=== PATIENT | female | born 1940 | race Caucasian/White ===

== ENCOUNTER → 2017-05-26 | Outpatient (CLI) | payer OTHER ==
[~2017-05-26] MED LIST: ALDACTONE25 MG PO; AMOXICILLIN 50500 MG PO; B12INJ IM; CALCIUM 600 +1 EAC1 PO; CLEOCIN HCL150 MG PO; EVISTA PO; FISH OIL 1,001000 M2 PO; FOLIC ACID1 MG PO; HYDROCHLOROTHIA25 M2 PO; LABETALOL HCL PO; LABETALOL HCL100 MG PO; LISINOPRIL10 MG PO; MELOXICAM7.5 MG PO; MOBIC7.5 MG PO; MULTIPLE VITAM1 EACH PO; NASONEX17 GM NASAL; NORCO 5-325 TA1 EACH PO; TRAZODONE HCL50 MG PO; TYLENOL EXTRA500 MG PO; VENTOLIN HFA 1818 GM INH; WELCHOL 625 MG625 MG PO; ZOFRAN ODT4 MG DISSOLVE
== END ==
LOC: M.MRI 11:12
DX: I67.82 Cerebral ischemia (principal); R25.1 Tremor, unspecified; G31.89 Other specified degenerative diseases of nervous system

== ENCOUNTER → 2017-06-06 | Outpatient (CLI) | payer OTHER | LOC: M.CT 13:21 | DX: J42 Unspecified chronic bronchitis (principal); R91.1 Solitary pulmonary nodule; I25.10 Atherosclerotic heart disease of native coronary artery without angina pectoris; I70.0 Atherosclerosis of aorta; M47.894 Other spondylosis, thoracic region; M51.36 Other intervertebral disc degeneration, lumbar region; I77.811 Abdominal aortic ectasia; K76.89 Other specified diseases of liver ==

== ENCOUNTER → 2017-07-18 | Outpatient (CLI) | payer OTHER ==
[2017-07-20 11:09] LABS: ANTI-DNA SCREEN <1 IU/mL (0-9); ANTI-RNP 0.4 AI (0.0-0.9)
== END ==
LOC: M.LAB 13:39
DX: G25.5 Other chorea (principal)

== ENCOUNTER 2017-08-30 10:35 | Inpatient (IN) | payer OTHER ==
[~2017-08-30] VITALS: Ht 152.4 cm; Wt 49.9 kg
[2017-08-30] VITALS (7 sets, daily range): BP systolic 144–189; BP diastolic 66–99
--- NOTE | ~2017-08-30 | S ---
[address] [address] SURGICAL PATH RPT PROCEDURE Name: MARLA MARTINEZ Room: [address] IN ..#: [id number] Admission: 08/30/17 Date of : 40 Discharge: Report #: [id number] Path Case #: [id number] PATHOLOGY REPORT DRAFT COLLECTION DATE: 08/30/2017 RECEIVED DATE: 08/30/2017 SPECIMEN(S) RECEIVED: A.Plaque left carotid
[~2017-08-30 10:35] MED LIST changes: -CLEOCIN HCL150 MG PO; -NORCO 5-325 TA1 EACH PO
[2017-08-30 11:26] LABS: ABSOLUTE BASOPHILS 0.1 thou/uL (0.0-0.2); ABSOLUTE EOSINOPHILS 0.1 thou/uL (0.0-0.7); ABSOLUTE MONOCYTES 0.9 thou/uL (0.0-1.2); ABSOLUTE NEUTROPHILS 8.8 thou/uL (1.6-8.1); BASOPHILS 0.7 %; HEMATOCRIT 36.9 % (37.0-47.0); HEMOGLOBIN 12.3 gm/dL (12.0-15.0); LYMPHOCYTES 16.5 %; MCH 31.1 pg (26.0-34.0); MCHC 33.3 g/dL (28.0-37.0); MCV 93.3 fL (80.0-100.0); MONOCYTES 7.7 %; MPV 8.5 fl. (7.2-11.1); NUCLEATED RBCS 0 /100WBC; PLATELET COUNT* 359 thou/uL (150-400); POLYS 74.1 %; RBC 3.96 mil/uL (4.20-5.00); RDW-CV 13.9 % (10.5-14.5); WBC 11.8 thou/uL (4.0-11.0)
[2017-08-30 11:33] LABS: CALCIUM 9.9 mg/dL (8.5-10.1); CREATININE 1.1 mg/dL (0.6-1.3)
[2017-08-30 11:35] LABS: POTASSIUM 5.3 mmol/L (3.5-5.1)
--- NOTE | 2017-08-30 15:28 | OP ---
[facility] [address] [place] [address] OPERATIVE REPORT Name: MRALA MARTINEZ Room: [address] IN .R.#: [id number] Admission: 08/30/17 Attend Phys: Harriett Hartman Discharge: Date of : 40 Report #: [id number] THIS REPORT FOR: //name// CC: Will Cantu DATE OF SERVICE: 08/30/2017 PREOPERATIVE DIAGNOSIS: Asymptomatic left carotid stenosis. POSTOPERATIVE DIAGNOSIS: Asymptomatic left carotid stenosis. SURGEON: Will Ariza DO. CAKE WRINGER: None. PROCEDURE: 1. Left carotid endarterectomy, bovine pericardial patch angioplasty. 2. Intraoperative arterial duplex. ANESTHESIA: General endotracheal anesthesia. ESTIMATED BLOOD LOSS: 100 mL. SPECIMEN: None. COMPLICATIONS: None. CONDITION: Stable. DISPOSITION: ICU. INDICATIONS FOR THE PROCEDURE AND CONSENT: The patient is a 77-year-old female who presented with severe left internal carotid artery asymptomatic stenosis. Recommendation for left carotid endarterectomy was made. Risks and benefits were discussed with infection, bleeding, nerve injury, stroke, heart attack, . The patient wished to proceed, was consented and scheduled. PROCEDURE IN DETAIL: After timeout was performed, the patient was placed in supine position with sterile prep and drape of the anterior neck and chest wall. A semi-transverse incision was made anterior to sternocleidomastoid on the left side. Dissection carried down sharply with Metzenbaum scissors as well as Bovie electrocautery. The internal jugular vein was encountered. Facial vein and the large branch were ligated with 2-0 silk suture and divided exposing the carotid bulb. The common carotid artery was then encircled [place] [id number] OPERATIVE REPORT Name: MARLA MARTINEZ Room: [address] IN [facility].#: [id number] Admission: 08/30/17 Attend Phys: Harriett Hartman Discharge: Date of : 40 Report #: [id number] utilizing an umbilical tape. The internal and external carotid arteries were identified and dissected out sharply. There was a crossing suspected marginal mandibular nerve, which was identified and able to be preserved; however, it was stretched significantly with retraction. The hypoglossal nerve was identified and preserved. The internal carotid artery was then controlled posteriorly with small vessel loop. The external carotid artery was controlled with a Silastic loop as well. The thyroidal artery was controlled with a 2-0 silk suture. The patient was then systemically heparinized with 6000 units of heparin, allowed to circulate for 3 minutes. The internal, external and common carotid arteries were then sequentially clamped and a longitudinal arteriotomy made with 11 blade scalpel and Morales scissors. A #12 shunt was advanced into the internal carotid artery without difficulty, was noted to backbleed well and then advanced in the common carotid artery and controlled with a Rumel tourniquet. The plaque was then using a plaque elevator and tapered nicely in its distal end point. The external carotid artery was everted and endarterectomy performed in this portion as well. The endarterectomized portion was then meticulously cleaned with forceps and all flaps and debris were removed. The area was irrigated copiously with heparin saline under pressure to identify any free floating flaps, none were identified. Bovine pericardial patch was then selected and sutured in place using a 6-0 Prolene suture in standard fashion. Prior to complete closure, the shunt was removed and clamps reapplied. The endarterectomized portion was then irrigated copiously and allowed to backbleed briefly from the internal and external carotid arteries and then reirrigated and then the patch closed. The blood flow was then restored up to external carotid artery and ultimately up to internal carotid artery and blood flow restored to the brain. The patch was noted to be hemostatic. An intraoperative duplex was then performed, which identified the internal, external and common carotid arteries to be patent with appropriate waveforms. Please see saved images. B-mode imaging did identify a proximal possible concern of flap at the proximal transition zone. This was remedied with a 6-0 U stitch placed from outside. Repeat imaging demonstrated this area to be static. I was pleased with the result. I then reinspected the entire endarterectomized portion. No additional debris or flaps or concern was identified. The wound was then irrigated with antibiotic saline. The patient was reversed with 40 units of protamine and the wound closed in layers using 2-0 Vicryl, 3-0 Vicryl and 4-0 Monocryl suture. Dermabond dressing was applied. The patient tolerated the procedure well. All lap, needle, instrument counts were correct. The patient was transferred to recovery moving all four extremities and stable. <ELECTRONICALLY SIGNED> By: Will Ariza DO 08/30/17 1528 [id number] Ariza DO /nt
[2017-08-31] VITALS (13 sets, daily range): BP systolic 124–151; BP diastolic 57–85
[2017-08-31 09:35] LABS: ABSOLUTE BASOPHILS 0.1 thou/uL (0.0-0.2); ABSOLUTE LYMPHOCYTES 2.2 thou/uL (0.8-5.3); ABSOLUTE MONOCYTES 1.3 thou/uL (0.0-1.2); BASOPHILS 0.3 %; EOSINOPHILS 0.1 %; HEMATOCRIT 33.2 % (37.0-47.0); LYMPHOCYTES 13.5 %; MCH 30.9 pg (26.0-34.0); MCHC 33.1 g/dL (28.0-37.0); MCV 93.3 fL (80.0-100.0); MONOCYTES 7.6 %; MPV 8.3 fl. (7.2-11.1); NUCLEATED RBCS 0 /100WBC; PLATELET COUNT* 296 thou/uL (150-400); POLYS 78.5 %; RBC 3.56 mil/uL (4.20-5.00); RDW-CV 13.9 % (10.5-14.5); WBC 16.6 thou/uL (4.0-11.0)
[2017-08-31 09:47] LABS: ALBUMIN 3.2 g/dL (3.4-5.0); CALCIUM 8.8 mg/dL (8.5-10.1); CREATININE 1.1 mg/dL (0.6-1.3); POTASSIUM 4.4 mmol/L (3.5-5.1); TOTAL BILIRUBIN 0.4 mg/dL (<0.1-1.0); TOTAL PROTEIN 6.5 g/dL (6.4-8.2)
[2017-08-31] MEDS ORDERED: NORCO 5-325 TA1 EACH PO (11:04)
[2017-10-16] MEDS ORDERED: CLEOCIN HCL150 MG PO (14:17)
[2017-10-16] MEDS ORDERED: NORCO 5-325 TA1 EACH PO (14:18)
--- NOTE | 2017-10-18 09:03 | PATH ---
[facility] [address] [place] [address] PATHOLOGY RPT PROCEDURE Name: MARLA MARTINEZ Room: [address] IN M.R.#: [id number] Admission: 08/30/17 Date of : 40 Discharge: 08/31/17 Report #: [id number] Path Case #: [id number] [facility] Accession Number: [id number] . 01 Material submitted: . BIOPSY,PLAQUE LEFT CAROTID . 01 Clinical history: . LEFT CAROTID STENOSIS . 02 Diagnosis: Plaque left carotid: Fibrointimal atherosclerotic plaque with calcification and prominent chronic inflammation. See comment. LBQ/09/06/2017 . 02 Comment: A focus of chronic inflammation is supported by properly controlled immunohistochemical stains performed on A1 with results as follows: . LCA Positive Keratin LINDA Negative (DOROTHY:db; 09/06/2017) . 02 Electronically signed: . Asael Roque MD, Pathologist NPI- [id number] . 01 Gross description: . Received in formalin labeled "Marla Martinez, Plaque left carotid", is a tubular segment of orange-yellow to wakefield-brown, rubbery tissue measuring 2.8 x 1.5 x 1.1 cm in greatest dimensions. Sectioning of the specimen reveals partially calcified cut surfaces. The specimen is submitted representatively in cassette A1, following decalcification. (DAC: 08/31/2017) . After initial microscopic examination, the remainder of the entire specimen is submitted in cassettes A2 and A3. (DAC: 09/01/2017) /LBQ . 02 Pathologist provided ICD-10: I65.22 . 02 CPT . 214896, 471711, X11326, [id number] Performed at: [facility] [address] [place] [id number] [place] [address] PATHOLOGY RPT PROCEDURE Name: MARLA MARTINEZ Room: [address]#: [id number] Admission: 08/30/17 Date of : 40 Discharge: 08/31/17 Report #: [id number] Path Case #: [id number] MD Raffy Cherry MD Phone: [phone] Performed at: [facility] [address] [place] [address] [id number] MD Nito Noonan MD Phone: [phone]
== END 2017-08-31 16:00 | disposition home or self-care (01) | DRG 38 ==
LOC: M.TBA 10:35 → M.ICU 10:35 → M.PRE 11:41 → M.ICU 15:38 → M.PRE 15:38 → M.ICU 08-31 16:00
PROVIDERS: Internal Medicine; Surgery; ADMIT Internal Medicine
PROC: 03UL0KZ Supplement Left Internal Carotid Artery with Nonautologous Tissue Substitute, Open Approach (ICD-10-PCS; principal; 2017-08-30)
PROC: 03CL0ZZ Extirpation of Matter from Left Internal Carotid Artery, Open Approach (ICD-10-PCS; principal; 2017-08-30)
DX: I65.22 Occlusion and stenosis of left carotid artery (principal); E87.1 Hypo-osmolality and hyponatremia; M81.0 Age-related osteoporosis without current pathological fracture; J43.9 Emphysema, unspecified; F17.210 Nicotine dependence, cigarettes, uncomplicated; J02.9 Acute pharyngitis, unspecified; I10 Essential (primary) hypertension; J40 Bronchitis, not specified as acute or chronic; Z71.6 Tobacco abuse counseling; Z98.42 Cataract extraction status, left eye; Z98.41 Cataract extraction status, right eye; Z79.899 Other long term (current) drug therapy; Z88.8 Allergy status to other drugs, medicaments and biological substances

== ENCOUNTER → 2017-09-29 | Outpatient (CLI) | payer OTHER ==
[~2017-09-29] MED LIST changes: +CLEOCIN HCL150 MG PO; +NORCO 5-325 TA1 EACH PO
== END ==
LOC: M.CT 13:00
DX: I77.811 Abdominal aortic ectasia (principal); J84.10 Pulmonary fibrosis, unspecified; M47.897 Other spondylosis, lumbosacral region; M25.78 Osteophyte, vertebrae; I65.23 Occlusion and stenosis of bilateral carotid arteries; J43.1 Panlobular emphysema; I10 Essential (primary) hypertension; M81.0 Age-related osteoporosis without current pathological fracture; R01.1 Cardiac murmur, unspecified; R91.1 Solitary pulmonary nodule

== ENCOUNTER → 2017-10-12 | Outpatient (CLI) | payer OTHER | LOC: M.CT 12:56 | DX: J84.10 Pulmonary fibrosis, unspecified (principal); I25.10 Atherosclerotic heart disease of native coronary artery without angina pectoris; I08.0 Rheumatic disorders of both mitral and aortic valves; R91.1 Solitary pulmonary nodule ==

== ENCOUNTER → 2018-02-26 | Outpatient (CLI) | payer OTHER | LOC: M.RAD 13:00 → M.CT 13:00 → M.RAD 13:34 | DX: Z12.31 Encounter for screening mammogram for malignant neoplasm of breast (principal) ==

== ENCOUNTER → 2018-02-28 | Outpatient (CLI) | payer OTHER | LOC: M.ULTRA 13:05 | DX: J92.9 Pleural plaque without asbestos (principal); N63.20 Unspecified lump in the left breast, unspecified quadrant ==